=== PATIENT | female | born 1945 | race Caucasian/White ===

== ENCOUNTER → 2016-05-16 | Outpatient (CLI) | payer MEDICARE, OTHER ==
--- NOTE | 2016-05-17 10:50 | RADIOLOGY REPORT PS360 ---
CT EXT.LOWER-RT-W/O CONTRAST INDICATION: Posttraumatic persistent right hip pain PAIN RT HIP ORDERING PHYSICIAN: Heike Rodgers MD PATIENT AGE: 71 years COMPARISON: Radiograph 05/07/2016 TECHNIQUE: Axial images are obtained without contrast. Sagittal and coronal reformatted images are reviewed as well. FINDINGS: No fracture or dislocation. Mild osteoarthritic changes involve the hip joint with some nonspecific hypertrophic change and osseous sclerosis along the greater trochanter superiorly. No significant hip joint effusion. No soft tissue abnormalities. IMPRESSION: 1. No acute finding. 2. Mild osteoarthritic change
== END ==
LOC: RAD 14:55
DX: M25.551 Pain in right hip (principal)

== ENCOUNTER → 2016-10-13 | Outpatient (CLI) | payer MEDICARE, OTHER ==
[~2016-10-13] MED LIST: BISOPROLOL 5MG T5 MG PO; CYANOCOBAL1000 MCG/M PO; FUROSEMIDE 40MG40 M1 PO; GLIPIZIDE ER10 M1 PO; IRON TABLETS325 MG PO; METFORMIN 500M500 M1 PO; SIMVASTATIN40 MG PO; STOOL SOFT-STI1 EACH PO; VITAMIN C500 M1 PO; VITAMIN D31000 IU PO; ZITHROMAX Z-PA250 M2 PO
== END ==
LOC: SL 20:17
DX: G47.33 Obstructive sleep apnea (adult) (pediatric) (principal)

== ENCOUNTER → 2016-12-15 | Day surgery (SDC) | payer MEDICARE, OTHER ==
[~2016-12-15] VITALS: Ht 154.9 cm; Wt 64.0 kg
--- NOTE | 2016-12-15 13:46 | Operative Note ---
Colonoscopy ([place]) Procedure date: 12/15/16 Date of : 47 Procedure:Colonoscopy Colonoscopy with cold snare polypectomy Indications: Mrs. Escalera is a 71-year-old female who is here for diagnostic colonoscopy secondary to a positive cologuard fecal test. The patient has had a change in her bowel habits and she does tend to alternate between formed and then soft/ loose stools and even some diarrhea. She does have excessive wiping and the feeling of incomplete defecation. She reports no rectal bleeding, abdominal pain , weight loss or family history of colon cancer. This is her first colonoscopy. Performing Provider: Gilda Isabel MD Referrring Provider: Heike Rodgers M.D. Sedation: MAC sedation Procedure: Prior to the procedure, a history and physical exam was performed, and patient medications and allergies were reviewed. The risks and benefits of the procedure and the sedation options and risks were discussed with the patient. All questions were answered and informed consent was obtained. Patient identification and proposed procedure were verified by the physician and the nurse. The patient was placed in a left lateral decubitus position. Throughout the procedure, the patient's blood pressure, pulse, and oxygen saturations were monitored continuously. Findings: On digital rectal examination there was normal rectal tone. There were no external hemorrhoids. The colonoscope was introduced through the anal canal to the rectum and advanced to the cecum. The ileocecal valve and appendiceal orifice were identified. The scope was advanced a short distance into the ileum which appeared grossly normal. The scope was then withdrawn into the colon. There were 13 colon polyps identified in the cecum 2, ascending 3, transverse was 4, descending 3 and sigmoid 1. These ranged in size from 5-10 mm and were all removed via cold snare polypectomy. There were scattered diverticuli throughout the descending and sigmoid colon (LEFT colon). The rectum itself was normal. Upon retroflexion within the rectum there were grade 1 internal hemorrhoids. Impressions: 1. Colonic polyps 13 2. Left-sided diverticulosis 3. Grade 1 internal hemorrhoids Recommendations: I will follow up the polyp pathology and recommend repeat colonoscopy again in 1 -3 years based upon the polyp histology. I would encourage fiber supplementation on a long-term daily maintenance basis. Complications: None EBL (ml): 0 at 1346
[2016-12-15 15:51] VITALS: BP 142/63
== END ==
LOC: SDC 12:32
PROVIDERS: Internal Medicine Gastroenterology
PROC: 0DBN8ZX Excision of Sigmoid Colon, Via Natural or Artificial Opening Endoscopic, Diagnostic (ICD-10-PCS; 2016-12-15)
PROC: 0DBM8ZX Excision of Descending Colon, Via Natural or Artificial Opening Endoscopic, Diagnostic (ICD-10-PCS; 2016-12-15)
PROC: 0DBL8ZX Excision of Transverse Colon, Via Natural or Artificial Opening Endoscopic, Diagnostic (ICD-10-PCS; 2016-12-15)
PROC: 0DBK8ZX Excision of Ascending Colon, Via Natural or Artificial Opening Endoscopic, Diagnostic (ICD-10-PCS; 2016-12-15)
PROC: 0DBH8ZX Excision of Cecum, Via Natural or Artificial Opening Endoscopic, Diagnostic (ICD-10-PCS; principal; 2016-12-15 13:30)
DX: K63.5 Polyp of colon (principal); K57.30 Diverticulosis of large intestine without perforation or abscess without bleeding; K64.0 First degree hemorrhoids; R19.7 Diarrhea, unspecified